=== PATIENT | male | born 1955 | race Caucasian/White ===

== ENCOUNTER 2023-11-04 17:30 | Emergency (ER) | payer OTHER ==
[2023-11-04] MEDS ORDERED: ACETAMINOPHEN TAB 500 MG TAB ONE (18:49)
[2023-11-04] MEDS ORDERED: LACTATED RINGERS 500 ML BAG IV ONE (18:54)
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
== END 2023-11-04 22:43 | disposition home or self-care (01) ==
LOC: EC 17:30
CPT/HCPCS: 70450; 71045; 71260; 72125; 72129; 72132; 72170; 74177; 93005; 96360; 99285

== ENCOUNTER → 2024-09-28 | Outpatient (CLI) | payer MEDICARE ==
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
== END | disposition home or self-care (01) ==
LOC: RADMRIMAIN 10:35
PROVIDERS: ATTEND Psychiatry & Neurology Neurology
DX: M51.04 Intervertebral disc disorders with myelopathy, thoracic region (principal); M50.00 Cervical disc disorder with myelopathy, unspecified cervical region
CPT/HCPCS: 72141; 72146